=== PATIENT | male | born 1995 | race Two or more races ===

== ENCOUNTER 2023-04-12 16:23 | Emergency (ER) | payer MEDICAID, OTHER ==
[~2023-04-12] VITALS: Ht 172.7 cm; Wt 71.6 kg
[2023-04-12 16:40] VITALS: BP 129/85; PULSE 113; RESP 18; O2SAT 96
[2023-04-12] MEDS ORDERED: HYDR-4902 PO (19:22)
[2023-04-12] MEDS ORDERED: HYDROcodone-ACET 5/325MG TAB PO ONE (19:30)
== END 2023-04-12 22:46 | disposition home or self-care (01) ==
LOC: ER 16:23
DX: S43.492A Other sprain of left shoulder joint, initial encounter (principal); S00.03XA Contusion of scalp, initial encounter; Y04.8XXA Assault by other bodily force, initial encounter; Y93.89 Activity, other specified; Y92.89 Other specified places as the place of occurrence of the external cause; Y99.8 Other external cause status
CPT/HCPCS: 70450; 73030